=== PATIENT | female | born 1945 | race Hispanic/Latino ===

== ENCOUNTER → 2018-11-23 | Outpatient (CLI) | payer MEDICARE | END | disposition home or self-care (01) | LOC: RAH 15:28 | PROVIDERS: ATTEND Internal Medicine Cardiovascular Disease | DX: G44.81 Hypnic headache (principal) | CPT/HCPCS: 70450 ==

== ENCOUNTER → 2023-11-15 | Outpatient (CLI) | payer MEDICARE ==
[~2023-11-15] MED LIST: IOHEXOL 350 MG/ML 100ML INFUS..BTL IV ONE; metoPROLOL tartRATE 1 MG/ML 5ML VIAL IV ONE
== END | disposition home or self-care (01) ==
LOC: RAH 08:24
PROVIDERS: ATTEND Internal Medicine Cardiovascular Disease
DX: R06.02 Shortness of breath (principal)
CPT/HCPCS: 75574; J3490; Q9967